=== PATIENT | male | born 1970 | race African-American/Black ===

== ENCOUNTER 2018-03-05 23:00 | Emergency (ER) | payer OTHER ==
[~2018-03-05] VITALS: Ht 185.4 cm; Wt 132.4 kg
--- NOTE | ~2018-03-05 | EKG ---
[address] [address] ELECTROCARDIOGRAM REPORT Name: ARIADNA BUTLER Room #: [facility]P [id number] Admission: 03/05/18 Attend Phys: Discharge: 03/06/18 Date of : 72 Report #: [id number] THIS REPORT FOR: //name// [facility] ED Test Date: 2018-03-05 Test Time: 23:11:39 Pat Name: ARIADNA BUTLER Department: Room: Gender: Review Nurse: ladan : 1970 Requested By: Sri Grimes Order Number: [id number] MD: Abhilash John Measurements Intervals [place] Rate: 91 P: 48 OR: 187 QRS: 13 QRSD: 87 T: -3 QT: 363 QTc: 447 Interpretive Statements Sinus rhythm Borderline T wave abnormalities No previous ECG available for comparison Electronically Signed On 03-06-2018 9:05:19 CDT by Abhilash John [email or web address] <ELECTRONICALLY SIGNED> By: Abhilash John MD 03/06/18 0905 2311 2311 MD SHEYLA Kaur
[2018-03-05 23:32] LABS: ABSOLUTE NEUTROPHILS 4.1 thou/uL (1.4-8.2); EOSINOPHILS 1.6 % (0.0-3.0); HEMATOCRIT 42.2 % (42.0-52.0); HEMOGLOBIN 14.9 gm/dL (14.0-18.0); LYMPHOCYTES 40.5 % (24.0-44.0); MCH 31.3 pg (26.0-34.0); MCHC 35.2 g/dL (28.0-37.0); MONOCYTES 6.3 % (1.0-8.0); PLATELET COUNT 300 thou/uL (150-400); POLYS 50.6 % (36.0-66.0); RBC 4.74 mil/uL (4.50-6.00); RDW 13.8 % (10.5-14.5); WBC 8.2 thou/uL (4.0-11.0)
[2018-03-05 23:40] LABS: ANION GAP 6 mmol/L (7-16); BUN 15 mg/dL (7-18); CALCIUM 9.2 mg/dL (8.5-10.1); CHLORIDE 101 mmol/L (98-107); CO2 27 mmol/L (21-32); CREATININE 1.3 mg/dL (0.7-1.3); GLUCOSE 187 mg/dL (74-106); SODIUM 134 mmol/L (136-145)
[2018-03-05 23:48] LABS: ALBUMIN 3.4 g/dL (3.4-5.0); SGOT 35 U/L (15-37); SGPT 74 U/L (30-65); TOTAL BILIRUBIN 0.8 mg/dL (<0.1-1.0); TOTAL PROTEIN 6.8 g/dL (6.4-8.2); TROPONIN-I <0.06 ng/mL (<0.06)
[2018-03-06] MEDS ORDERED: POTASSIUM20 PO (01:13)
[2018-03-06 01:14] VITALS: BP 110/65
== END 2018-03-06 01:23 | disposition home or self-care (01) ==
LOC: ER 23:00
PROVIDERS: Physician Assistant
DX: E87.6 Hypokalemia (principal); R00.2 Palpitations; I10 Essential (primary) hypertension; E11.9 Type 2 diabetes mellitus without complications; E78.5 Hyperlipidemia, unspecified